=== PATIENT | male | born 1955 | race Caucasian/White ===

== ENCOUNTER 2019-04-11 08:09 | Emergency (ER) | payer OTHER ==
--- NOTE | 2019-04-11 09:46 | EDM.PDOC ---
ED HPI GENERAL MEDICAL PROBLEM - General Chief Complaint: Head Injury Stated Complaint: FELL OF TALL BED AND HIT HEAD Time Seen by Provider: 04/11/19 09:46 Source of Information: Reports: Patient History Limitations: Reports: No Limitations - History of Present Illness INITIAL COMMENTS - FREE TEXT/NARRATIVE: pt was om Onset: Today, Other (pt was sleeping on the top bunk and he went to get down. He fell and he hit his head on the ladder and on the corner of the dresser. He is having a headache. He did have a loss of consciousness briefly. His felt he did not respond for about 1-2 minutes. He has not vomited. He is confused and he is off balance when he walks. ) Duration: Hour(s): Location: Reports: Head Associated Symptoms: Reports: No Other Symptoms, Other (pt seemes somewhat confused and responds slowly. ) - Related Data Allergies Allergy/AdvReac Type Severity Reaction Status Date / Time No Known Allergies Allergy Verified 04/11/19 08:38 Home Meds: Home Meds Metoprolol Tartrate 1 tab PO BID 04/11/19 [History] Past Medical History - Past Surgical History Cardiovascular Surgical History: Reports: Valve Replacement GI Surgical History: Reports: Appendectomy Social & Family History - Tobacco Use Years of Tobacco use: 10 Packs/Tins Daily: 0.1 ED ROS GENERAL - Review of Systems Review Of Systems: See Below Constitutional: Reports: No Symptoms HEENT: Reports: No Symptoms Respiratory: Reports: No Symptoms Cardiovascular: Reports: No Symptoms Endocrine: Reports: No Symptoms GI/Abdominal: Reports: No Symptoms : Reports: No Symptoms Musculoskeletal: Reports: No Symptoms Skin: Reports: No Symptoms Neurological: Reports: Confusion, Headache, Difficulty Walking, Weakness, Other (pt is slow to respond. There has been a concern about a possible stroke recently because of changes in funtion. He had a recent MRI which was considered neg. His feels he normally has slight confusion. He is still working at this time. She feels he seemes quite different aftwer the fall. Michael was contacted and felt if he was in the middle of a neuro workup at [facility] that he should return there. ) Psychiatric: Reports: Agitation, Anxiety ED EXAM, HEAD INJURY - Physical Exam Exam: See Below Text/Narrative:: pt arrived with a headache and a history of a fall hitting the back of his head. he had a loss of consciousness and has been confused. Exam Limited By: No Limitations General Appearance: Alert, Anxious, Moderate Distress Head: Other ( There is not alot of swelling on the back of the head he is tender. pupils are equal and reactive to lite. ) Ears: Normal TMs Nose: Normal Inspection Throat/Mouth: Normal Inspection Neck: Other ( tender in the upper cervical area. ) Respiratory: No Respiratory Distress Cardiovascular: Regular Rate, Rhythm GI/Abdominal Exam: Soft, Non-Tender (Male) Exam: Deferred Rectal (Males) Exam: Deferred Back Exam: Normal Inspection Extremities: Normal Inspection Neurologic: Alert, Oriented x 3, Other (pt does seem mildly confused. Pupils remain equal and reactive. ) Skin: Normal Color Course - Vital Signs Last Recorded V/S: Last Vital Signs Temp 35.5 C 04/11/19 08:44 Pulse 61 04/11/19 08:44 Resp 16 04/11/19 08:44 BP 137/93 H 04/11/19 08:44 Pulse Ox 100 04/11/19 08:44 - Orders/Labs/Meds Meds: Medications Discontinued Medications Generic Name Dose Route Start Last Admin Trade Name Freq PRN Reason Stop Dose Admin Hydromorphone HCl 0.5 mg 04/11/19 11:06 04/11/19 11:27 Dilaudid IVPUSH 04/11/19 11:07 0.5 mg ONETIME ONE Administration Ondansetron HCl 4 mg 04/11/19 11:06 04/11/19 11:27 Zofran IVPUSH 04/11/19 11:07 4 mg ONETIME ONE Administration Sodium Chloride 10 ml 04/11/19 11:05 04/11/19 11:27 Saline Flush FLUSH 10 ml ASDIRECTED PRN Administration Keep Vein Open - Re-Assessments/Exams Free Text/Narrative Re-Assessment/Exam: 04/11/19 11:26 cat scan of the head and neck were done. The c spine was neg for fracture. The cat scan of the head showed a frontal subdural and subarachnoid bleed and there was concern about the pontine. Pt does seem slurred with his speech and he is very vague at times. Departure - Departure Time of Disposition: 12:25 Disposition: DC/Tfer to Acute Hospital 02 Condition: Fair Clinical Impression: Subarachnoid bleed, Subdural bleeding, Cervical sprain - Discharge Information Referrals: PCP,None [Primary Care Provider] - Forms: ED Department Discharge Care Plan Goals: transfer to [facility]
--- NOTE | 2019-04-11 11:00 | CRLCT ---
Indication: Blood to back of head. Fall. Technique: Multiple contiguous axial images were obtained from the skullbase to the vertex without intravenous contrast enhancement. Please note that all CT scans at this facility use dose modulation, iterative reconstruction, and/or weight-based dosing when appropriate to reduce radiation dose to as low as reasonably achievable. Comparison: None Findings: The ventricles are not enlarged, greater than would be expected given the size of the sulci. This is worrisome for normal pressure hydrocephalus. Sub arachnoid hemorrhages are identified bilaterally, greatest in the frontal lobes. Subdural hemorrhage is identified in the left frontal lobe, measuring 1.8 x 1.0 cm in size. Within the right frontal lobe, an 8 millimeter area of increased attenuation is identified. This is best seen on image number 35, series 2. This is most likely an intraparenchymal hemorrhage. High-density material is also identified within the mira at the level of the midline and just to the left of midline. A pontine hemorrhage cannot be excluded. This is seen on images 16-18, series 2. No midline shift is identified. There is most likely edema within the frontal lobes. The basal cisterns are patent. The bony calvarium is intact. The visualized paranasal sinuses are clear. Impression: Subarachnoid and subdural hemorrhages, predominantly within the frontal lobes. Most likely an intraparenchymal hemorrhage within the right frontal lobe. High-density material is most likely also present within the mira. A pontine hemorrhage cannot be excluded. Hydrocephalus, which is out of proportion to the size of the sulci. These findings were discussed with Dr. Feliciano at the time of this dictation. Please note that all CT scans at this facility use dose modulation, iterative reconstruction, and/or weight-based dosing when appropriate to reduce radiation dose to as low as reasonably achievable. Dictated by Rossi Quinn MD @ Apr 11 2019 10:45AM Signed by Dr. Rossi Quinn @ Apr 11 2019 10:57AM
[2019-04-11] MEDS ORDERED: Sodium Chloride 0.9% 10 ML Syringe FLUSH PRN (11:05)
[2019-04-11] MEDS ORDERED: HYDROmorphone 0.5 MG/0.5 ML Syringe IVPUSH ONE (11:06)
[2019-04-11] MEDS ORDERED: Ondansetron 4 MG/2 ML SDV IVPUSH ONE (11:06)
--- NOTE | 2019-04-11 11:11 | CRLCT ---
INDICATION: Trauma, pain, fall. TECHNIQUE: CT cervical spine without contrast. COMPARISON: None FINDINGS: No cervical spine fracture,, significant subluxation or acute osseous abnormality is seen. There is reversal of normal cervical lordosis which likely is due to supine technique. However could represent underlying muscular spasm. Moderate spondylosis change is present in the lower cervical spine and is most evident at the C6-7 level. Associated mild to moderate multilevel neural foraminal stenosis is present and most of the lower cervical spine. No central canal stenosis is seen. Limited assessment of the upper thorax is unremarkable. IMPRESSION: 1. No acute fracture or acute osseous abnormality is seen. 2. Reversal of normal cervical lordosis is likely due to supine imaging technique. 3. Moderate spondylosis change. Please note that all CT scans at this facility use dose modulation, iterative reconstruction, and/or weight-based dosing when appropriate to reduce radiation dose to as low as reasonably achievable. Dictated by Ren Byrne MD @ Apr 11 2019 10:56AM Signed by Dr. Ren Byrne @ Apr 11 2019 11:08AM
== END 2019-04-11 11:40 ==
LOC: JP.ED 08:09
DX: S06.5X9A Traumatic subdural hemorrhage with loss of consciousness of unspecified duration, initial encounter (principal); S06.6X9A Traumatic subarachnoid hemorrhage with loss of consciousness of unspecified duration, initial encounter; S13.4XXA Sprain of ligaments of cervical spine, initial encounter; F17.210 Nicotine dependence, cigarettes, uncomplicated; Z79.899 Other long term (current) drug therapy; W06.XXXA Fall from bed, initial encounter
CPT/HCPCS: 70450; 72125; 96374; 96375; 99285; J1170; J2405